=== PATIENT | female | born 1955 | race Caucasian/White ===

== ENCOUNTER 2017-07-08 06:41 | Observation (INO) | payer OTHER, SELFPAY ==
[2017-06-25 13:20] VITALS: BP 141/75; PULSE 86; RESP 16; TEMP 36.6; O2SAT 96; BMI 25.6
--- NOTE | 2017-06-25 13:25 | SDCEKG_ITS ---
Test Reason : Blood Pressure : / mmHG Vent. Rate : 080 BPM Atrial Rate : 080 BPM P-R Int : 136 ms QRS Dur : 084 ms QT Int : 372 ms P-R-T Axes : 046 027 040 degrees QTc Int : 429 ms Normal sinus rhythm Possible Left atrial enlargement Borderline ECG Confirmed by ANTONIO CAVAZOS, TREVER ([id number]), acquisition editor SHELBIE SAN ([id number]) on 06/28/2017 1:35:25 PM Referred By: Ton Bryant Confirmed By:TREVER ALVAREZ MD
[2017-06-25 13:55] LABS: Hematocrit 40.5 % (37-47); Hemoglobin 13.1 g/dl (12.0-15.0); Mean Corp Hgb Conc 32.3 g/gl (32-36); Mean Platelet Vol. 9.4 fl (6.2-12.0); Platelet Count 325 K/mm3 (150-450); RBC Distribution Width CV 12.7 % (11.6-14.6); RBC Distribution Width SD 44.6 fl (35.1-43.9); Red Blood Count 4.22 M/mm3 (4.2-5.4); Scan Indicated on CBC? Y/N NO; White Blood Count 9.7 K/mm3 (4.4-11.0)
[2017-06-25 14:08] LABS: Anion Gap 8 (5-15); BUN 13 mg/dL (7-18); BUN/Creat Ratio 19.5 RATIO (10-20); Calcium,Total 8.6 mg/dL (8.5-10.1); Chloride 104 mmol/L (98-107); Creatinine, Serum 0.67 mg/dL (0.55-1.02); EST Glomerular Filtration Rate 95 mL/min (>60); Est Glom Filt Rate - Afr Amer 115 mL/min (>60); Estimated Creatinine Clearance 82.49 ml/min; Glucose 100 mg/dL (74-106); Potassium 3.7 mmol/L (3.5-5.1); Sodium Level 141 mmol/L (136-145)
[2017-07-08] VITALS (13 sets, daily range): BP systolic 104–151; BP diastolic 56–84; PULSE 66–84; RESP 16–18; TEMP 36.1–36.7; O2SAT 94–100; BMI 25.6; BMI 24.3
[2017-07-08] MEDS: oxyCODONE HCl Cr 10 MG Tablet PO (07:14)
[2017-07-08] MEDS: Acetaminophen 500 MG Tablet 1000 MG PO ×2 (07:14→21:49)
[2017-07-08] MEDS: Celecoxib 200 MG Capsule 400 MG PO (07:14)
[2017-07-08] MEDS: Clindamycin 600 MG/50 ML BAG 100 MG IV ×3 (08:44→21:50)
--- NOTE | 2017-07-08 09:49 | RAD_ITS ---
STUDY: X-RAY - RIGHT KNEE REASON FOR EXAM: Female, 62 years old. Postop from replacement surgery TECHNIQUE: 2 view(s) of the knee. COMPARISON: None. FINDINGS: Patient is status post right knee placement surgery. Components demonstrate anatomic alignment. No plain film evidence of postoperative complication. Normal postoperative soft tissue swelling and subcutaneous emphysema. RAD/Knee 1 or 2 Views IMPRESSION: Replaced right knee joint demonstrates anatomic alignment. No plain film evidence of postoperative complication Electronically Signed: Leroy Vazquez MD at 10:54 EDT , Service support ,
--- NOTE | 2017-07-08 09:52 | PCM.OPRPT ---
Report of Operation Date of Procedure: 07/08/17 Pre-Operative Diagnosis: Severe end-stage osteoarthritis right knee with valgus alignment Post-Operative Diagnosis: Same Surgery/Procedure Performed:: Total knee arthroplasty right Description of Surgical Findings:: Eburnation of bone, periarticular osteophytes consistent with severe tricompartmental osteoarthritis vpk teacher: Santi Chacon Type of Anesthesia:: Spinal Anesthesiologist: Saul Juarez Special Medications: txa Specimen's removed: Bone and soft tissue Estimated Blood Loss (mL): 100 Fluids Replaced: See anesthesia report Description of Procedure: Implants: Man triathlon press-fit size 6 femur, 5 tibia, 32 mm patella with a size 9 CS articulating surface Indications: Patient has severe end-stage osteoarthritis diagnosed via x-rays in the knee. They have failed all forms of conservative measures including activity modification, injections, anti-inflammatories, use of assistive device. The patient has pain that affects on a daily basis and prevents him from doing things that they enjoyed. They have elected to undergo the above procedure. The risks of the procedure were discussed at length and their questions were answered. Procedure description: The patient was greeted in the preoperative area. The right knee was then marked with a surgical marker. Patient was then taken to or Suite 2. They were administered a dose of antibiotics as well as tranexamic acid. Once adequate anesthesia was obtained and airway was secured to placed in supine position on the operating room table. A well-padded tourniquet was placed on the affected extremity. Leg was then prepped and draped in the usual sterile fashion from the knee down. Ioban was used on the skin. Surgical timeout was then performed and confirmed with all present. Six-inch Esmarch was used to examine the limb and tourniquet was then inflated to 250 mmHg. A longitudinal incision was then planned and carried out in the anterior aspect of the knee. The dissection was then carried the length of the incision the extensor mechanism was identified. Standard medial parapatellar arthrotomy was then performed revealing severe eburnation of bone and periarticular osteophytes. There is complete loss of cartilage especially in the medial compartment with varus alignment. Anterior fat pad was removed for visualization purposes and the anterior medial aspect of the tibia was skeletonized for exposure to the knee. The knee was then flexed the patella was inverted. Opening reamer was then used in the femur approximately 1 cm anterior to the attachment of the PCL. The intramedullary valgus wand was then placed in the femur set at 5? of valgus. The distal femoral cutting jig was then applied to the femur with anticipated resection of approximately 8 mm. This was then made with a oscillating saw. The sizing guide was then placed referencing off the posterior condyles and also reference off the epicondylar axis. This was measured and the appropriate size 4-in-1 cutting jig was then applied to the distal femur. Anterior posterior cuts were made followed by the anterior and posterior chamfer cuts. These bony pieces and fragments were removed and placed on the back table. Posterior retractor was then utilized and the tibia was subluxed anteriorly. Extramedullary tibial alignment jig was then applied to the tibia referencing off the medial one third of the tibial tubercle the anterior tibial spine the middle aspect of the tibiotalar joint. Also reference off patient's [place] slope. The tibial cutting jig was then pinned with anticipated resection of 2 mm off of the deficient lateral tibial condyle. This cut was made with the oscillating saw. Once this was complete a laminar mental tester was utilized in both medial lateral meniscus were removed and a posterior capsular osteophytes were also removed. Posterior capsule release was performed in the posterior capsule as well as the geniculate arteries are treated with the aqua Yodit. The tibia was incised and the appropriate sized tibial tray was then pinned. The femoral trial was then placed and the knee was trialed. Full flexion-extension were easily achieved. The knee seemed to balance quite nicely. Any remaining osteophytes were removed at this time. Once this was complete the patella was everted and the Jorge L patella reaming device was then utilized the patella was then placed in the appropriate jig and reamer was then used to remove approximately 9 mm of the undersurface of the patella. A soft tissue remaining was in the way was removed and patella trial was then placed listed maintain excellent tracking using the no thumbs technique. The tibial tray at this point was punched to accommodate the fins of the final implant. The trial components were removed and the knee was copiously irrigated. Did use a cocktail of injection for postoperative pain control. The final components were then press-fit in the standard fashion and patellar clamp is placed in the patella. The tourniquet was deflated and hemostasis was perfect with Bovie cautery as well as the aqua Manus. The knee is once again trialed with different size polyethylenes to ensure the full range of motion was achieved as well as excellent balancing ligamentously was achieved. At this point the knee was copiously irrigated. Final implant was then inserted locking mechanism was engaged and confirmed to be locked. The arthrotomy was then closed with #1 Vicryl aggravate type fashion interrupted. Subcutaneous tissue was closed with 0 Vicryl and surgical becky were placed in the skin. A occlusive silver impregnated dressing was then applied followed by well-padded sterile dressing secured with an Hal wrap. The patient was taken to the PACU in stable condition. No complications known at this time. Postoperatively we will maintain standard total knee postoperative protocol. The use of the physician grooming assistant was integral during this procedure. They assisted with positioning placement of the tourniquet retracting closure and placement of the dressing. The procedure would have been much more difficult without their expertise and assistance - Complications none - Admit VTE Documentation VTE Present on Admission: Yes VTE Mechan Device Prophylaxis: SCD's, Thigh High MANUEL Hose VTE Pharm Prophylaxis ordered?: Yes
--- NOTE | 2017-07-08 09:56 | OP.PCM_ITS ---
Report of Operation Date of Procedure: 07/08/17 Pre-Operative Diagnosis: Severe end-stage osteoarthritis right knee with valgus alignment Post-Operative Diagnosis: Same Surgery/Procedure Performed:: Total knee arthroplasty right Description of Surgical Findings:: Eburnation of bone, periarticular osteophytes consistent with severe tricompartmental osteoarthritis vehicle maintenance supervisor: Santi Chacon Type of Anesthesia:: Spinal Anesthesiologist: Saul Juarez Special Medications: txa Specimen's removed: Bone and soft tissue Estimated Blood Loss (mL): 100 Fluids Replaced: See anesthesia report Description of Procedure: Implants: Man triathlon press-fit size 6 femur, 5 tibia, 32 mm patella with a size 9 CS articulating surface Indications: Patient has severe end-stage osteoarthritis diagnosed via x-rays in the knee. They have failed all forms of conservative measures including activity modification, injections, anti-inflammatories, use of assistive device. The patient has pain that affects on a daily basis and prevents him from doing things that they enjoyed. They have elected to undergo the above procedure. The risks of the procedure were discussed at length and their questions were answered. Procedure description: The patient was greeted in the preoperative area. The right knee was then marked with a surgical marker. Patient was then taken to or Suite 2. They were administered a dose of antibiotics as well as tranexamic acid. Once adequate anesthesia was obtained and airway was secured to placed in supine position on the operating room table. A well-padded tourniquet was placed on the affected extremity. Leg was then prepped and draped in the usual sterile fashion from the knee down. Ioban was used on the skin. Surgical timeout was then performed and confirmed with all present. Six-inch Esmarch was used to examine the limb and tourniquet was then inflated to 250 mmHg. A longitudinal incision was then planned and carried out in the anterior aspect of the knee. The dissection was then carried the length of the incision the extensor mechanism was identified. Standard medial parapatellar arthrotomy was then performed revealing severe eburnation of bone and periarticular osteophytes. There is complete loss of cartilage especially in the medial compartment with varus alignment. Anterior fat pad was removed for visualization purposes and the anterior medial aspect of the tibia was skeletonized for exposure to the knee. The knee was then flexed the patella was inverted. Opening reamer was then used in the femur approximately 1 cm anterior to the attachment of the PCL. The intramedullary valgus wand was then placed in the femur set at 5? of valgus. The distal femoral cutting jig was then applied to the femur with anticipated resection of approximately 8 mm. This was then made with a oscillating saw. The sizing guide was then placed referencing off the posterior condyles and also reference off the epicondylar axis. This was measured and the appropriate size 4-in-1 cutting jig was then applied to the distal femur. Anterior posterior cuts were made followed by the anterior and posterior chamfer cuts. These bony pieces and fragments were removed and placed on the back table. Posterior retractor was then utilized and the tibia was subluxed anteriorly. Extramedullary tibial alignment jig was then applied to the tibia referencing off the medial one third of the tibial tubercle the anterior tibial spine the middle aspect of the tibiotalar joint. Also reference off patient's [place] slope. The tibial cutting jig was then pinned with anticipated resection of 2 mm off of the deficient lateral tibial condyle. This cut was made with the oscillating saw. Once this was complete a laminar hand assembler for puller over was utilized in both medial lateral meniscus were removed and a posterior capsular osteophytes were also removed. Posterior capsule release was performed in the posterior capsule as well as the geniculate arteries are treated with the aqua Yodit. The tibia was incised and the appropriate sized tibial tray was then pinned. The femoral trial was then placed and the knee was trialed. Full flexion-extension were easily achieved. The knee seemed to balance quite nicely. Any remaining osteophytes were removed at this time. Once this was complete the patella was everted and the Jorge L patella reaming device was then utilized the patella was then placed in the appropriate jig and reamer was then used to remove approximately 9 mm of the undersurface of the patella. A soft tissue remaining was in the way was removed and patella trial was then placed listed maintain excellent tracking using the no thumbs technique. The tibial tray at this point was punched to accommodate the fins of the final implant. The trial components were removed and the knee was copiously irrigated. Did use a cocktail of injection for postoperative pain control. The final components were then press-fit in the standard fashion and patellar clamp is placed in the patella. The tourniquet was deflated and hemostasis was perfect with Bovie cautery as well as the aqua Manus. The knee is once again trialed with different size polyethylenes to ensure the full range of motion was achieved as well as excellent balancing ligamentously was achieved. At this point the knee was copiously irrigated. Final implant was then inserted locking mechanism was engaged and confirmed to be locked. The arthrotomy was then closed with #1 Vicryl aggravate type fashion interrupted. Subcutaneous tissue was closed with 0 Vicryl and surgical becky were placed in the skin. A occlusive silver impregnated dressing was then applied followed by well- padded sterile dressing secured with an Hal wrap. The patient was taken to the PACU in stable condition. No complications known at this time. Postoperatively we will maintain standard total knee postoperative protocol. The use of the physician assistant plant manager was integral during this procedure. They assisted with positioning placement of the tourniquet retracting closure and placement of the dressing. The procedure would have been much more difficult without their expertise and assistance - Complications none - Admit VTE Documentation VTE Present on Admission: Yes VTE Mechan Device Prophylaxis: SCD's, Thigh High MANUEL Hose VTE Pharm Prophylaxis ordered?: Yes
[2017-07-08] MEDS: Lactated Ringers 1,000 ML 125 ML IV ×2 (14:16→23:49)
[2017-07-08] MEDS: Ondansetron 4 MG/2 ML Vial IV ×2 (14:23→21:51)
--- NOTE | 2017-07-08 14:45 | CHAPLAIN ---
Type of Pastoral Visit _x__ Initial Visit ___ Follow-up Visit ___ On-call Visit ___ General Patient Visit ___ Spiritual Assessment ___ Family Conference ___ Bereavement ___ Rapid Response ___ Code Blue ___ Other (describe below) Pastoral Care Referral From ___ Patient _x__ Family ___ Nurse ___ Physician ___ Banking And Finance Instructor ___ Neurological Surgeon ___ Other (describe below) Sacrament/Intervention _x__ Active listening ___ Anointing ___ Scientologist ___ Bereavement ___ Communion ___ Sylvia exploration ___ ___ Life review ___ Prayer ___ Reconciliation ___ Sacrament of Sick _x__ Supportive presence ___ Wedding ___ Other (describe below) Pastoral Comments family member known to me; family member saw this critical care rn and asked for a visit; post surgery and pt is feeling a little unsettled in the stomach; other family members in room; offered support as desired
[2017-07-08] MEDS: Aspirin 325 MG Tablet PO (16:38)
[2017-07-08] MEDS: proMETHazine 25 MG/ML Syringe 12.5 MG IM (17:22)
[2017-07-08] MEDS: Ketorolac 15 MG/ML Vial IV (20:11)
[2017-07-08] MEDS: 0.9% NaCl Peripheral Flush Adult/Peds IV ×2 (20:11→21:49)
[2017-07-08] MEDS: Senna/Docusate Sodium 1 Tablet 2 TABLET PO (21:50)
[2017-07-08] MEDS: morphine SR 15 MG Tablet PO (21:50)
[2017-07-08] MEDS: Celecoxib 200 MG Capsule PO (21:50)
[2017-07-08] MEDS: Scopolamine 1mg/72hr Patch 1 PATCH TD (22:08)
[2017-07-09 02:15] VITALS: BP 136/77; PULSE 79; RESP 16; TEMP 37; O2SAT 97
[2017-07-09] MEDS: Clindamycin 600 MG/50 ML BAG 100 MG IV (02:27)
[2017-07-09] MEDS: 0.9% NaCl Peripheral Flush Adult/Peds IV ×3 (05:55→22:40)
[2017-07-09] MEDS: Acetaminophen 500 MG Tablet 1000 MG PO ×3 (05:55→22:06)
--- NOTE | 2017-07-09 07:41 | PCM.PN.ORT ---
Subjective: Shannan is doing quite well this morning. She has minimal discomfort and pain. She is sitting at bedside table. Her biggest issues with nausea and vomiting. She denies any chest pain or shortness of breath - Physical Exam Vital Signs Temp Pulse Resp BP Pulse Ox 98.6 F 79 16 136/77 H 97 07/09/17 02:15 07/09/17 02:15 07/09/17 02:15 07/09/17 02:15 07/09/17 02:15 Oxygen Delivery Method Room Air Weight: 155 lb Body Mass Index (BMI) 24.3 Intake and Output for Last 24 Hours 07/07/17 07/08/17 07/09/17 23:59 23:59 23:59 Intake Total 3593 / 3593 1056 / 1056 Output Total 1500 / 1500 500 / 500 Balance 2093 / 3 556 / 556 Medical Necessity - Tobacco Use Smoking Status: Never smoker Assessment/Plan Postop day 1 right total knee arthroplasty Postoperative nausea vomiting Shannan is doing quite well. I did place a scopolamine patch on her last night as well as increase the amount of Phenergan that she is receiving. This does seem to have helped. She has not had breakfast yet and will be curious as to if her nausea and vomiting has dissipated. Given the fact that she is having difficulty holding oral fluids I do feel that patient would benefit from staying another night and anticipate being discharged to home tomorrow
[2017-07-09] MEDS: Aspirin 325 MG Tablet PO ×2 (08:39→17:42)
[2017-07-09] MEDS: Calcium Carb/Vitamin D 1 TABLET Tablet PO (08:39)
[2017-07-09] MEDS: oxyCODONE 5 MG Tablet PO (08:39)
[2017-07-09 08:40] VITALS: BP 115/62; PULSE 70; RESP 16; TEMP 37.4; O2SAT 100
[2017-07-09 09:55] VITALS: PULSE 64
[2017-07-09] MEDS: morphine SR 15 MG Tablet PO ×2 (09:58→22:06)
[2017-07-09] MEDS: Senna/Docusate Sodium 1 Tablet 2 TABLET PO ×2 (09:58→22:07)
[2017-07-09] MEDS: Celecoxib 200 MG Capsule PO ×2 (09:59→22:07)
[2017-07-09] MEDS: Famotidine 20 MG Tablet PO (09:59)
--- NOTE | 2017-07-09 11:50 | CASEMGMT ---
PRUDENCIO GAONA Face to Face with patient for initial transition planning/care coordination assessment. RN JIMENEZ introduced self and role at [facility]. Patient lying in bed, alert and oriented, daughter at bedside. Patient willing to participate in assessment and is able to answer all questions appropriately. Care providers, pharmacy, and demographics verified. See link attached. Patient wishes to discharge home and is setup for outpatient therapy at [facility] with family providing transportation. Patient states she has no further needs or concerns at this time. CM to follow for discharge planning needs that may arise. Disposition Plan: Patient to discharge home with outpatient therapy, family support, and follow-plan in place.
[2017-07-09] MEDS: Ondansetron 4 MG/2 ML Vial IV (12:30)
[2017-07-09 14:39] VITALS: BP 118/63; PULSE 68; RESP 18; TEMP 37.3; O2SAT 96
--- NOTE | 2017-07-09 15:35 | CHAPLAIN ---
Type of Pastoral Visit ___ Initial Visit _x__ Follow-up Visit ___ On-call Visit ___ General Patient Visit ___ Spiritual Assessment ___ Family Conference ___ Bereavement ___ Rapid Response ___ Code Blue ___ Other (describe below) Pastoral Care Referral From _x__ Patient _x__ Family ___ Nurse ___ Physician ___ [employer] Mill Worker ___ Sales Property Manager ___ Other (describe below) Sacrament/Intervention _x__ Active listening ___ Anointing ___ Presybeterian ___ Bereavement ___ Communion ___ Sylvia exploration ___ ___ Life review ___ Prayer ___ Reconciliation ___ Sacrament of Sick ___ Supportive presence ___ Wedding ___ Other (describe below) Pastoral Comments
[2017-07-09 20:00] VITALS: BP 112/61; PULSE 76; RESP 16; TEMP 37.4; O2SAT 96
[2017-07-10 02:00] VITALS: BP 129/68; PULSE 83; RESP 16; TEMP 36.7; O2SAT 94
[2017-07-10] MEDS: oxyCODONE 5 MG Tablet PO ×3 (03:06→14:40)
[2017-07-10] MEDS: Acetaminophen 500 MG Tablet 1000 MG PO ×2 (06:08→14:38)
[2017-07-10] MEDS: 0.9% NaCl Peripheral Flush Adult/Peds IV (07:20)
[2017-07-10] MEDS: Ondansetron 4 MG/2 ML Vial IV (07:21)
[2017-07-10 07:37] VITALS: BP 113/63; PULSE 75; RESP 18; TEMP 36.9; O2SAT 94
[2017-07-10] MEDS: Aspirin 325 MG Tablet PO (07:39)
[2017-07-10] MEDS: Famotidine 20 MG Tablet PO (07:39)
[2017-07-10] MEDS: Celecoxib 200 MG Capsule PO (07:39)
[2017-07-10] MEDS: Calcium Carb/Vitamin D 1 TABLET Tablet PO (07:39)
[2017-07-10 08:30] VITALS: PULSE 74
[2017-07-10] MEDS: morphine SR 15 MG Tablet PO (10:05)
[2017-07-10] MEDS: Senna/Docusate Sodium 1 Tablet 2 TABLET PO (10:06)
--- NOTE | 2017-07-10 11:43 | PCM.DC.ORTHO ---
Discharge Diet: No Restrictions Discharge Activity: May Not Drive, May Shower - if dressing sealed Ice area for (Minutes): 20 Weight Bearing Status: Weight bearing as tolerated - with walker Keep extremity elevated above heart level: Right Leg Call your doctor if your incision/area has: Continuous Slow Oozing, Sudden Increased Bleeding, Increased Pain/ Swelling, Increased Redness, Foul Smelling Discharge Call your doctor if you observe: Fever of 101 or Higher, Coldness, Increased Pain, Numbness or Tingling, Change in Color Remove Dressing in (days):: 7 - open to air if no drainage Cleanse incision/area with: Soap & Water - after dressing removed if no drainage Allergies/Adverse Reactions: Allergies Penicillins Adverse Reaction (Verified 06/25/17 13:08) Nausea/Vom/Diarrhea Medications to take at Discharge Calcium Carbonate/Vitamin D3 [Calcium 500-Vit D3 200 Tablet] 1 each PO DAILY 06/25/17 Meloxicam [Mobic] 15 mg PO DAILY 06/25/17 Multivit with Calcium,Iron,Min [Multiple Vitamins For Women] 1 each PO DAILY 06/25/17 Acetaminophen [Tylenol] 1,000 mg PO Q8 tablet 07/10/17 Aspirin 325 mg PO BIDCM tablet 07/10/17 Ondansetron HCl [Zofran] 4 mg PO Q6H PRN PRN 5 Days #20 tab 07/10/17 Oxycodone [Oxyir] 5 - 10 mg PO Q4H PRN PRN 7 Days #56 tablet 07/10/17 morphine SR tablet [Ms Contin] 15 mg PO BID 7 Days #14 tablet 07/10/17 The following prescriptions were given: Oxycodone [Oxyir] 5 - 10 mg PO Q4H PRN PRN 7 Days #56 tablet PRN Reason: Mod-Severe Pain (4-10/10) Ondansetron HCl [Zofran] 4 mg PO Q6H PRN PRN 5 Days #20 tab PRN Reason: Nausea/Vomiting morphine SR tablet [Ms Contin] 15 mg PO BID 7 Days #14 tablet Please Follow Up With: Santi Chacon PA-C When: as scheduled
--- NOTE | 2017-07-10 11:53 | DCINST_ITS ---
Discharge Diet: No Restrictions Discharge Activity: May Not Drive, May Shower - if dressing sealed Ice area for (Minutes): 20 Weight Bearing Status: Weight bearing as tolerated - with walker Keep extremity elevated above heart level: Right Leg Call your doctor if your incision/area has: Continuous Slow Oozing, Sudden Increased Bleeding, Increased Pain/ Swelling, Increased Redness, Foul Smelling Discharge Call your doctor if you observe: Fever of 101 or Higher, Coldness, Increased Pain, Numbness or Tingling, Change in Color Remove Dressing in (days):: 7 - open to air if no drainage Cleanse incision/area with: Soap & Water - after dressing removed if no drainage Allergies/Adverse Reactions: Allergies Penicillins Adverse Reaction (Verified 06/25/17 13:08) Nausea/Vom/Diarrhea Medications to take at Discharge Calcium Carbonate/Vitamin D3 [Calcium 500-Vit D3 200 Tablet] 1 each PO DAILY Meloxicam [Mobic] 15 mg PO DAILY 06/25/17 Multivit with Calcium,Iron,Min [Multiple Vitamins For Women] 1 each PO DAILY Acetaminophen [Tylenol] 1,000 mg PO Q8 tablet 07/10/17 Aspirin 325 mg PO BIDCM tablet 07/10/17 Ondansetron HCl [Zofran] 4 mg PO Q6H PRN PRN 5 Days #20 tab 07/10/17 Oxycodone [Oxyir] 5 - 10 mg PO Q4H PRN PRN 7 Days #56 tablet 07/10/17 morphine SR tablet [Ms Contin] 15 mg PO BID 7 Days #14 tablet 07/10/17 The following prescriptions were given: Oxycodone [Oxyir] 5 - 10 mg PO Q4H PRN PRN 7 Days #56 tablet PRN Reason: Mod-Severe Pain (4-10/10) Ondansetron HCl [Zofran] 4 mg PO Q6H PRN PRN 5 Days #20 tab PRN Reason: Nausea/Vomiting morphine SR tablet [Ms Contin] 15 mg PO BID 7 Days #14 tablet Please Follow Up With: Santi Chacon PA-C When: as scheduled
--- NOTE | 2017-07-10 12:06 | DS.PCM_ITS ---
Discharge Summary Date of Admission: 07/08/17 Date of Discharge: 07/10/17 Summary: Shannan is a 62-year-old female who had a total knee arthroplasty on the right for severe end-stage osteoarthritis. Once she is stable in the PACU she was then taken to [facility] where she was monitored per protocol. She was placed on both mechanical and chemical DVT prophylaxis. She was also administered pain control oral as well as IV. She was evaluated by physical and Occupational Therapy in order to maximize functional independence. She did quite well and will be discharged to home July 02, 2017 please see discharge instructions.
[2017-07-10 14:35] VITALS: BP 123/65; PULSE 76; RESP 16; TEMP 36.8; O2SAT 95
== END 2017-07-10 14:56 | disposition home or self-care (01) ==
LOC: ACINP 15:59 → MS3 15:59
PROVIDERS: Admitting Provider Orthopaedic Surgery; Family Provider Internal Medicine; PCP Internal Medicine; Visit Provider Orthopaedic Surgery
PROC: (CPT 27447; principal; 2017-07-08 08:20)
DX: M17.11 Unilateral primary osteoarthritis, right knee (principal); K21.9 Gastro-esophageal reflux disease without esophagitis
CPT/HCPCS: 27447; 64447; 73560; 80048; 85027; 87081; 96361; 96365; 96366; 96372; 96375; 96376; 97110; 97116; 97161; 97165; 97530; 97535; 99218; J7120; A4216; G0378; G0379; J2405

== ENCOUNTER → 2017-08-13 10:17 | Outpatient (CLI) | payer OTHER, SELFPAY ==
--- NOTE | 2017-08-13 10:28 | RAD_ITS ---
STUDY: X-RAY - PELVIS REASON FOR EXAM: Female, 62 years old. Arthritis TECHNIQUE: One view of the pelvis was obtained. COMPARISON: 06/21/2013 FINDINGS: There is no evidence of fracture or dislocation. There are stable mild degenerative changes in the lower spine and in the hips. There are no radiodense foreign bodies. RAD/Pelvis 1 or 2 Views IMPRESSION: No fracture or dislocation. Stable mild degenerative changes in the lower spine and hips. Electronically Signed: Ted Hood, at 17:12 EDT Tel , Service support ,
[2017-08-13 12:12] LABS: Erythrocyte Sedimentation Rate 9 mm/hr (0-30)
[2017-08-13 12:13] LABS: Absolute Lymphocyte Count 2.01 X10^3/ul (0.83-4.51); Absolute Neutrophil Count 5.2 X10^3/uL (2.0-7.7); Basophil# 0.01 X10^3/uL; Basophil% 0.1 % (0-1); Eosinophil# 0.11 X10^3/uL; Eosinophils% 1.4 % (0-5); Hematocrit 37.1 % (37-47); Hemoglobin 11.6 g/dl (12.0-15.0); Lymphocyte # 2.01 X10^3/ul (4.0); Lymphocyte % 25.4 % (19-41); Mean Corp Hgb Conc 31.3 g/gl (32-36); Mean Corpuscular Hgb 30.6 pg (27.0-32.0); Mean Corpuscular Volume 97.9 fL (81-99); Mean Platelet Vol. 8.9 fl (6.2-12.0); Monocyte# 0.52 X10^3/uL; Monocyte% 6.6 % (0-10); Neutrophil # 5.24 X10^3/uL (2.7-7.7); Neutrophil % 66.4 % (47-70); Platelet Count 348 K/mm3 (150-450); RBC Distribution Width CV 13.6 % (11.6-14.6); RBC Distribution Width SD 48.6 fl (35.1-43.9); Red Blood Count 3.79 M/mm3 (4.2-5.4); White Blood Count 7.9 K/mm3 (4.4-11.0)
[2017-08-13 12:25] LABS: ALB/GLOB Ratio 1.1 RATIO (0.9-2.4); AST(SGOT) 19 U/L (15-37); Alanine Aminotransfer ALT/SGPT 19 U/L (13-56); Albumin, Serum 4.1 g/dL (3.2-5.0); Alkaline Phosphatase 84 U/L (45-117); Anion Gap 5 (5-15); BUN 16 mg/dL (7-18); BUN/Creat Ratio 25.5 RATIO (10-20); CRP < 2.90 mg/L (0.0-3.0); Calcium,Total 9.2 mg/dL (8.5-10.1); Chloride 106 mmol/L (98-107); Creatinine, Serum 0.63 mg/dL (0.55-1.02); EST Glomerular Filtration Rate 102 mL/min (>60); Est Glom Filt Rate - Afr Amer 123 mL/min (>60); Globulin 3.6 g/dL (2.2-4.2); Glucose 87 mg/dL (74-106); Potassium 3.7 mmol/L (3.5-5.1); Protein, Total 7.7 g/dL (6.4-8.2); Rheumatoid Factor < 10.0 IU/mL (<15); Sodium Level 141 mmol/L (136-145)
[2017-08-13 12:26] LABS: POSITIVE COUNT NO; POSITIVE DIFFERENTIAL NO; POSITIVE MORPHOLOGY NO
[2017-08-20 11:13] LABS: CCP IgG Antibodies 2 units (0-19); HLA B27 Negative (.)
== END ==
PROVIDERS: Family Provider Internal Medicine; PCP Internal Medicine; Visit Provider Internal Medicine Rheumatology
DX: M18.11 Unilateral primary osteoarthritis of first carpometacarpal joint, right hand (principal); M47.897 Other spondylosis, lumbosacral region
CPT/HCPCS: 36415; 72170; 80053; 81374; 85025; 85652; 86140; 86200; 86431

== ENCOUNTER → 2018-03-18 10:19 | Outpatient (CLI) | payer MEDICARE, SELFPAY ==
[2017-07-08 12:01] VITALS: BMI 24.3
[2018-03-18 12:17] LABS: Absolute Neutrophil Count 4.5 X10^3/uL (2.0-7.7); Basophil# 0.01 X10^3/uL; Basophil% 0.1 % (0-1); Eosinophil# 0.07 X10^3/uL; Eosinophils% 0.9 % (0-5); Hematocrit 41.4 % (37-47); Hemoglobin 13.5 g/dl (12.0-15.0); Mean Corp Hgb Conc 32.6 g/gl (32-36); Mean Corpuscular Hgb 31.6 pg (27.0-32.0); Mean Platelet Vol. 9.8 fl (6.2-12.0); Monocyte% 6.7 % (0-10); Neutrophil # 4.52 X10^3/uL (2.7-7.7); Neutrophil % 61.2 % (47-70); Platelet Count 350 K/mm3 (150-450); RBC Distribution Width CV 12.9 % (11.6-14.6); RBC Distribution Width SD 44.8 fl (35.1-43.9); Red Blood Count 4.27 M/mm3 (4.2-5.4); White Blood Count 7.4 K/mm3 (4.4-11.0)
[2018-03-18 12:23] LABS: POSITIVE COUNT NO; POSITIVE DIFFERENTIAL NO; POSITIVE MORPHOLOGY NO
[2018-03-18 12:56] LABS: ALB/GLOB Ratio 1.2 RATIO (0.9-2.4); AST(SGOT) 25 U/L (15-37); Alanine Aminotransfer ALT/SGPT 34 U/L (13-56); Albumin, Serum 4.4 g/dL (3.2-5.0); Alkaline Phosphatase 85 U/L (45-117); Anion Gap 12 (5-15); BUN 20 mg/dL (7-18); BUN/Creat Ratio 28.3 RATIO (10-20); Calcium,Total 9.3 mg/dL (8.5-10.1); Chloride 100 mmol/L (98-107); Creatinine, Serum 0.71 mg/dL (0.55-1.02); EST Glomerular Filtration Rate 88 mL/min (>60); Est Glom Filt Rate - Afr Amer 107 mL/min (>60); Globulin 3.8 g/dL (2.2-4.2); Glucose 87 mg/dL (74-106); Potassium 4.2 mmol/L (3.5-5.1); Protein, Total 8.2 g/dL (6.4-8.2); Sodium Level 140 mmol/L (136-145)
== END ==
PROVIDERS: Family Provider Internal Medicine; PCP Internal Medicine; Referring Provider Internal Medicine Rheumatology; Visit Provider Internal Medicine Rheumatology
DX: M47.897 Other spondylosis, lumbosacral region (principal)
CPT/HCPCS: 36415; 80053; 85025

== ENCOUNTER → 2018-11-03 11:37 | Outpatient (CLI) | payer MEDICARE, SELFPAY ==
[2017-07-08 12:01] VITALS: BMI 24.3
[2018-11-03 13:50] LABS: Absolute Lymphocyte Count 2.05 X10^3/uL (0.83-4.51); Absolute Neutrophil Count 5.5 X10^3/uL (2.0-7.7); Basophil# 0.02 X10^3/uL; Basophil% 0.2 % (0-1); Eosinophil# 0.07 X10^3/uL; Eosinophils% 0.9 % (0-5); Hematocrit 40.7 % (37-47); Hemoglobin 13.4 g/dL (12.0-15.0); Lymphocyte # 2.05 X10^3/ul (4.0); Lymphocyte % 25.3 % (19-41); Mean Corp Hgb Conc 32.9 g/dL (32-36); Mean Corpuscular Hgb 31.5 pg (27.0-32.0); Mean Corpuscular Volume 95.8 fL (81-99); Mean Platelet Vol. 9.8 fl (6.2-12.0); Monocyte# 0.48 X10^3/uL; Monocyte% 5.9 % (0-10); NRBC Flagged by Analyzer 0 % (0-5); Neutrophil # 5.48 X10^3/uL (2.7-7.7); Neutrophil % 67.6 % (47-70); Platelet Count 330 K/mm3 (150-450); RBC Distribution Width CV 12.2 % (11.6-14.6); RBC Distribution Width SD 42.5 fl (35.1-43.9); Red Blood Count 4.25 M/mm3 (4.2-5.4); White Blood Count 8.1 K/mm3 (4.4-11.0)
[2018-11-03 14:04] LABS: ALB/GLOB Ratio 1.2 RATIO (0.9-2.4); AST(SGOT) 26 U/L (15-37); Alanine Aminotransfer ALT/SGPT 31 U/L (13-56); Albumin, Serum 4.4 g/dL (3.2-5.0); Alkaline Phosphatase 84 U/L (45-117); Anion Gap 10 (5-15); BUN 13 mg/dL (7-18); BUN/Creat Ratio 17.4 RATIO (10-20); Chloride 104 mmol/L (98-107); Creatinine, Serum 0.75 mg/dL (0.55-1.02); EST Glomerular Filtration Rate 83 mL/min (>60); Est Glom Filt Rate - Afr Amer 100 mL/min (>60); Globulin 3.6 g/dL (2.2-4.2); Glucose 92 mg/dL (74-106); Potassium 4.1 mmol/L (3.5-5.1); Sodium Level 140 mmol/L (136-145)
== END ==
PROVIDERS: Family Provider Internal Medicine; PCP Internal Medicine; Referring Provider Internal Medicine Rheumatology; Visit Provider Internal Medicine Rheumatology
DX: M18.11 Unilateral primary osteoarthritis of first carpometacarpal joint, right hand (principal); Q66.7 Congenital pes cavus; M47.897 Other spondylosis, lumbosacral region
CPT/HCPCS: 36415; 80053; 85025

== ENCOUNTER → 2019-04-30 12:23 | Outpatient (CLI) | payer MEDICARE, SELFPAY ==
[2017-07-08 12:01] VITALS: BMI 24.3
[2019-04-30 14:02] LABS: Hemoglobin 13.4 g/dL (12.0-15.0); White Blood Count 8.2 K/mm3 (4.4-11.0)
[2019-04-30 14:03] LABS: Absolute Neutrophil Count 5.3 X10^3/uL (2.0-7.7); Basophil# 0.02 X10^3/uL; Basophil% 0.2 % (0-1); Eosinophils% 1.2 % (0-5); Hematocrit 41.4 % (37-47); Mean Corp Hgb Conc 32.4 g/dL (32-36); Mean Corpuscular Hgb 31.2 pg (27.0-32.0); Mean Corpuscular Volume 96.3 fL (81-99); Mean Platelet Vol. 9.3 fl (6.2-12.0); Monocyte# 0.51 X10^3/uL; Monocyte% 6.2 % (0-10); NRBC Flagged by Analyzer 0 % (0-5); Neutrophil # 5.27 X10^3/uL (2.7-7.7); Neutrophil % 64.2 % (47-70); Platelet Count 326 K/mm3 (150-450); RBC Distribution Width CV 12.2 % (11.6-14.6); RBC Distribution Width SD 42.8 fl (35.1-43.9)
[2019-04-30 14:18] LABS: ALB/GLOB Ratio 1.1 RATIO (0.9-2.4); AST(SGOT) 18 U/L (15-37); Alanine Aminotransfer ALT/SGPT 29 U/L (13-56); Albumin, Serum 4.2 g/dL (3.2-5.0); Alkaline Phosphatase 80 U/L (45-117); Anion Gap 4 (5-15); BUN 15 mg/dL (7-18); BUN/Creat Ratio 20.8 RATIO (10-20); Calcium,Total 9.5 mg/dL (8.5-10.1); Chloride 105 mmol/L (98-107); Creatinine, Serum 0.72 mg/dL (0.55-1.02); EST Glomerular Filtration Rate 86 mL/min (>60); Est Glom Filt Rate - Afr Amer 104 mL/min (>60); Globulin 3.7 g/dL (2.2-4.2); Glucose 95 mg/dL (74-106); Potassium 4.4 mmol/L (3.5-5.1); Protein, Total 7.9 g/dL (6.4-8.2); Sodium Level 139 mmol/L (136-145)
== END ==
PROVIDERS: PCP Internal Medicine; Referring Provider Internal Medicine Rheumatology; Visit Provider Internal Medicine Rheumatology
DX: M18.11 Unilateral primary osteoarthritis of first carpometacarpal joint, right hand (principal); M17.0 Bilateral primary osteoarthritis of knee; M47.897 Other spondylosis, lumbosacral region
CPT/HCPCS: 36415; 80053; 85025

== ENCOUNTER 2019-05-22 08:26 | Day surgery (SDC) | payer MEDICARE, SELFPAY ==
[2019-05-22] VITALS (8 sets, daily range): BP systolic 113–154; BP diastolic 70–86; PULSE 71–88; RESP 16–22; TEMP 36.1–36.6; O2SAT 98–100; BMI 24.5
[2019-05-22] MEDS: Lactated Ringers 1,000 ML 100 ML IV (08:57)
--- NOTE | 2019-05-22 09:10 | H&P.OPEN ---
History of Present Illness Date of Admission: 05/22/19 The patient is a 64 year old F here for screening colonoscopy. The patient has colonoscopies every 5 years due to a brother with rectal cancer before age 60. Patient had her last colonoscopy 5 years ago and some polyps were found. Patient notes no abdominal pain or blood in her stool. Past Medical/Surgical History - Planned Operation Planned Operative Procedure/s: COLONOSCOPY Date of Operative Procedure: 05/22/19 Permit Signed: Yes S.O.S: No Is This Patient Having a Total Joint: No - Previous Hospitalizations/Surgeries HX Hospitalizations: No HX of Surgeries: APPENDECTOMY. RIGHT KNEE SCOPE. COLONOSCOPY. R TKR 07/08/2017 Any Problems With Anesthesia: Yes - N& V W/ TKR You/Your Family Experience Fever (Hyperthermia) With Anes: No Cholinesterase deficiency: No - Cardiovascular Hx Chest Pain within Last 2 months: No Hx of Irregular Heartbeat and/or Afib: No Hx Heart Attack: No Hx Congestive Heart Failure: No Hx Rheumatic Fever: No Hx Hypertension: No Hx Internal Defibrillator: No Hx Pacemaker: No Hx Cardiac Catheterization: No Hx Cardiac Surgery/Stents/Etc.: No Hx Stress Test: No HX Edema: No Hx Pain in Legs when Walking/Leg Cramps: No - Respiratory Chronic Cough: No HX of Shortness of Breath: No Hoarseness: No Hx Chronic Obstructive Pulmonary Disease (COPD): No Hx Asthma: No Hx Emphysema: No Hx Sleep Apnea: No Hx Oxygen Use at Home: No Hx Respiratory Tract Infection/Cold (presently): No Do You Snore Loudly (louder than talking or can be heard): No Do You Often Feel Tired/ Fatigued/ Sleepy Dring Daytime?: No Has Anyone Observed You Stop Breathing During Sleep?: No Result (for STOP score): Negative Hx Smoking: No Smoking Status: Never smoker - Gastrointestinal Hx Gastroesophageal Reflux: Yes - OCC HEARTBURN/USES OTC 2-3XPER WEEK Controlled With Meds: Yes - PEPCID Hx Gastrointestinal Disorders: No Hx Gastrointestinal Bleed: No Hx Ulcer: No Hx Hiatal Hernia: No Difficulty Chewing/Swallowing: No Recent Onset of Swallowing Problems: No Special diet followed at home: No Hx Unplanned Weight Loss of 20#: No HX Unplanned Weight Gain of 20#: No - Neurological Hx Seizures: No HX Syncope/Blackout Spells/Unconsciousness: No Hx CVA/Stroke: No Hx Transient Ischemic Attacks (TIA): No Hx Multiple Sclerosis: No Hx Parkinson's Disease: No Hx Head/Neck Injury: No Hx Headaches: No Hx Back Injury/Pain: Yes - OCC LOW BACK PAIN Recent Onset of Speech Difficulty: No Restless Legs: No Does patient have nerve stimulator: No - Blood Disorder Hx Leukemia: No Bleeding Tendencies: No Hx Deep Vein Thrombosis: No Hx High Cholesterol: No Blood Transmitted Disease: No Hx Hepatitis: No Hx Cirrhosis: No Hx Anemia: No Hx Blood Disorders: No - Reproduction : No Is Patient Lactating: No Hx Hysterectomy: No Hx Tubal Ligation: No Are You Post Menopause: Yes - Genitourinary Hx Renal Disease: No - Musculoskeletal Hx Arthritis: Yes Hx Rheumatoid Arthritis: No Hx Gout: No Recent Onset of an Orthopedic Problem: No - Endocrine Hx Diabetes: No Thyroid Disease: No Hx Steroid Therapy: No - Psycho/Social Hx Substance Use: No Hx Alcohol Use: Yes - SOCIAL Hx Anxiety: No Hx Depression: No Mental Illness: No Hx Dementia: No - Miscellaneous Hx Cancer: No Recent Exposure to Contagious Disease: No Active MRSA: No Hx of C-Diff: No Any Loose Teeth: No Allergies Penicillins Adverse Reaction (Verified 05/22/19 08:49) Nausea/Vom/Diarrhea - Discharge Is Pt Admitted From a Skilled Nursing, or a Care Home: No Who Could Help: SISTERLCAIR After D/C, Where Do you Plan to Go: Return Home - From the PAT History Number of Risk Factors: 2 - Physical Exam Vitals/I&O's: Vital Signs Temp Pulse Resp BP Pulse Ox 96.9 F L 88 16 131/72 H 98 05/22/19 08:50 05/22/19 08:50 05/22/19 08:50 05/22/19 08:50 05/22/19 08:50 Oxygen Delivery Method Room Air Weight: 156 lb 11.979 oz Body Mass Index (BMI) 24.5 General: Alert, Oriented x3 Neck: No JVD Lungs: Normal air movement Cardiovascular: Regular rate, Regular Rhythm Abdomen: Soft, Non Tender, Non-Distended Current Medications Lactated Ringer's () 1,000 mls @ 100 mls/hr IV .Q10H MARY Last Admin: 05/22/19 08:57 Dose: 100 mls/hr Documented by: Assessment/Plan 64-year-old female for surveillance colonoscopy I explained endoscopy in detail to the patient. I explained the risks including but not limited to stroke or heart attack with anesthesia, perforation of the GI tract, bleeding, infection. I explained that any of these could necessitate further emergency surgery. The patient understands and all questions were answered sufficiently. The patient wishes to proceed with procedure. Melquiades Thomas MD Pager: [facility] [address] [place] [address] [address] [place] [address] Office: Surgery Risks - Colonoscopy Risks Include but are not Limited To: Risks include but are not limited to: Bleeding, perforation requiring further surgery, inability to complete colonoscopy requiring barium enema.
--- NOTE | 2019-05-22 09:53 | OP.COLON_ITS ---
Patient Name: Shannan Thomas Procedure Date: 05/22/2019 9:13 AM Date of : 1955 Age: 64 Procedure: Colonoscopy Indications: High risk colon cancer surveillance: Personal history of non-advanced adenoma, Family history of rectal cancer in a first-degree relative Providers: Melquiades Thomas MD Referring MD: Melquiades Thomas MD Medicines: Monitored Anesthesia Care Patient Profile: This is a 64 year old female. Refer to note in patient chart for documentation of history and physical. Last Colonoscopy: 5 years ago. Complications: No immediate complications. Estimated blood loss: Minimal. Procedure: Pre-Anesthesia Assessment: - Prior to the procedure, a History and Physical was performed, and patient medications and allergies were reviewed. The patient's tolerance of previous anesthesia was also reviewed. The risks and benefits of the procedure and the sedation options and risks were discussed with the patient. All questions were answered, and informed consent was obtained. Prior Anticoagulants: The patient has taken no previous anticoagulant or antiplatelet agents. After reviewing the risks and benefits, the patient was deemed in satisfactory condition to undergo the procedure. After I obtained informed consent, the scope was passed under direct vision. Throughout the procedure, the patient's blood pressure, pulse, and oxygen saturations were monitored continuously. The pediatric colonoscope was introduced through the anus and advanced to the cecum, identified by appendiceal orifice and ileocecal valve. The colonoscopy was performed with moderate difficulty due to a tortuous colon. The patient tolerated the procedure well. The quality of the bowel preparation was good. Scope In: 9:22:16 AM Scope Withdrawal Time 0 hours 6 minutes 12 seconds Scope Out: 9:47:37 AM Total Procedure Duration Time 0 hours 25 minutes 21 seconds Findings: The entire examined colon appeared normal on direct and retroflexion views. Impression: - The entire examined colon is normal on direct and retroflexion views. - No specimens collected. Recommendation: - Discharge patient to home. - Resume previous diet. - Continue present medications. - Repeat colonoscopy in 5 years for surveillance. Procedure Code(s): --- Professional --- 81636, Colonoscopy, flexible; diagnostic, including collection of specimen(s) by brushing or washing, when performed (separate procedure) Diagnosis Code(s): --- Professional --- Z86.010, Personal history of colonic polyps Z80.0, Family history of malignant neoplasm of digestive organs CPT copyright 2017 [employer]. All rights reserved. The codes documented in this report are preliminary and upon plaster molder review may be revised to meet current compliance requirements. Melquiades Thomas MD 05/22/2019 9:53:25 AM This report has been signed electronically. Number of Addenda: 0 Note Initiated On: 05/22/2019 9:13 AM
--- NOTE | 2019-05-22 09:54 | OP.CCLET_ITS ---
05/22/2019 Jamie Franks [address] [place] [address] Re : Colonoscopy procedure for Shannan Thomas Dear Dr. Franks This procedure was performed on Wednesday, May 22, 2019. My impressions and recommendations are as follows: Impressions : - The entire examined colon is normal on direct and retroflexion views. - No specimens collected. Recommendations : - Discharge patient to home. - Resume previous diet. - Continue present medications. - Repeat colonoscopy in 5 years for surveillance. My findings are described in the full procedure note, which is enclosed. If I can be of further assistance, please feel free to contact me at Doctor phone number(s): , Work: . Sincerely, Melquiades Thomas MD 05/22/2019 9:53:25 AM This report has been signed electronically.
== END 2019-05-22 10:48 | disposition home or self-care (01) ==
LOC: EN 08:27 → AC 08:28
PROVIDERS: PCP Internal Medicine; Referring Provider Surgery; Visit Provider Surgery
PROC: 0DJD8ZZ Inspection of Lower Intestinal Tract, Via Natural or Artificial Opening Endoscopic (ICD-10-PCS; CPT 45378; principal; 2019-05-22 09:25)
DX: Z12.11 Encounter for screening for malignant neoplasm of colon (principal); Z80.0 Family history of malignant neoplasm of digestive organs; K21.9 Gastro-esophageal reflux disease without esophagitis; Z86.010 Personal history of colon polyps; Z88.0 Allergy status to penicillin
CPT/HCPCS: G0105; J7120; J2405

== ENCOUNTER → 2019-10-26 10:02 | Outpatient (CLI) | payer MEDICARE, SELFPAY ==
[2019-05-22 08:50] VITALS: BMI 24.5
[2019-10-26 12:42] LABS: Absolute Lymphocyte Count 2.31 X10^3/uL (0.83-4.51); Absolute Neutrophil Count 4.1 X10^3/uL (2.0-7.7); Basophil# 0.02 X10^3/uL; Basophil% 0.3 % (0-1); Eosinophil# 0.12 X10^3/uL; Eosinophils% 1.7 % (0-5); Hematocrit 40.9 % (37-47); Lymphocyte # 2.31 X10^3/ul (4.0); Lymphocyte % 32.5 % (19-41); Mean Corp Hgb Conc 31.8 g/dL (32-36); Mean Corpuscular Volume 97.6 fL (81-99); Mean Platelet Vol. 9.9 fl (6.2-12.0); Monocyte# 0.56 X10^3/uL; Monocyte% 7.9 % (0-10); NRBC Flagged by Analyzer 0 % (0-5); Neutrophil # 4.09 X10^3/uL (2.7-7.7); Neutrophil % 57.5 % (47-70); Platelet Count 330 K/mm3 (150-450); RBC Distribution Width CV 12.3 % (11.6-14.6); RBC Distribution Width SD 43.9 fl (35.1-43.9); Red Blood Count 4.19 M/mm3 (4.2-5.4); White Blood Count 7.1 K/mm3 (4.4-11.0)
[2019-10-26 12:58] LABS: ALB/GLOB Ratio 1.1 RATIO (0.9-2.4); AST(SGOT) 18 U/L (15-37); Alanine Aminotransfer ALT/SGPT 23 U/L (13-56); Albumin, Serum 4.1 g/dL (3.2-5.0); Alkaline Phosphatase 80 U/L (45-117); Anion Gap 5 (5-15); BUN 13 mg/dL (7-18); BUN/Creat Ratio 19.1 RATIO (10-20); Chloride 106 mmol/L (98-107); Creatinine, Serum 0.68 mg/dL (0.55-1.02); EST Glomerular Filtration Rate 92 mL/min (>60); Est Glom Filt Rate - Afr Amer 111 mL/min (>60); Globulin 3.9 g/dL (2.2-4.2); Glucose 100 mg/dL (74-106); Potassium 3.7 mmol/L (3.5-5.1); Sodium Level 138 mmol/L (136-145)
== END ==
PROVIDERS: PCP Internal Medicine; Referring Provider Internal Medicine Rheumatology; Visit Provider Internal Medicine Rheumatology
DX: M18.11 Unilateral primary osteoarthritis of first carpometacarpal joint, right hand (principal); M17.0 Bilateral primary osteoarthritis of knee; M47.897 Other spondylosis, lumbosacral region; Q66.70 Congenital pes cavus, unspecified foot
CPT/HCPCS: 36415; 80053; 85025

== ENCOUNTER → 2020-04-22 10:14 | Outpatient (CLI) | payer MEDICARE, SELFPAY ==
[2019-05-22 08:50] VITALS: BMI 24.5
[2020-04-22 12:31] LABS: Absolute Lymphocyte Count 2.07 X10^3/uL (0.83-4.51); Absolute Neutrophil Count 5.1 X10^3/uL (2.0-7.7); Basophil# 0.02 X10^3/uL; Basophil% 0.3 % (0-1); Eosinophil# 0.12 X10^3/uL; Eosinophils% 1.5 % (0-5); Hematocrit 40.4 % (37-47); Lymphocyte # 2.07 X10^3/ul (4.0); Lymphocyte % 26.3 % (19-41); Mean Corp Hgb Conc 32.2 g/dL (32-36); Mean Corpuscular Hgb 30.7 pg (27.0-32.0); Mean Corpuscular Volume 95.5 fL (81-99); Mean Platelet Vol. 9.6 fl (6.2-12.0); Monocyte# 0.51 X10^3/uL; Monocyte% 6.5 % (0-10); NRBC Flagged by Analyzer 0 % (0-5); Neutrophil # 5.14 X10^3/uL (2.7-7.7); Neutrophil % 65.1 % (47-70); Platelet Count 350 K/mm3 (150-450); RBC Distribution Width CV 12.5 % (11.6-14.6); Red Blood Count 4.23 M/mm3 (4.2-5.4); White Blood Count 7.9 K/mm3 (4.4-11.0)
[2020-04-22 12:53] LABS: ALB/GLOB Ratio 1.1 RATIO (0.9-2.4); AST(SGOT) 22 U/L (15-37); Alanine Aminotransfer ALT/SGPT 29 U/L (13-56); Albumin, Serum 4.1 g/dL (3.2-5.0); Alkaline Phosphatase 77 U/L (45-117); Anion Gap 5 (5-15); BUN 14 mg/dL (7-18); BUN/Creat Ratio 19.9 RATIO (10-20); Calcium,Total 8.9 mg/dL (8.5-10.1); Chloride 101 mmol/L (98-107); EST Glomerular Filtration Rate 88 mL/min (>60); Est Glom Filt Rate - Afr Amer 107 mL/min (>60); Globulin 3.6 g/dL (2.2-4.2); Glucose 93 mg/dL (74-106); Potassium 3.5 mmol/L (3.5-5.1); Protein, Total 7.7 g/dL (6.4-8.2); Sodium Level 137 mmol/L (136-145)
== END ==
PROVIDERS: PCP Internal Medicine; Referring Provider Internal Medicine Rheumatology; Visit Provider Internal Medicine Rheumatology
DX: M18.11 Unilateral primary osteoarthritis of first carpometacarpal joint, right hand (principal); M17.0 Bilateral primary osteoarthritis of knee; M47.897 Other spondylosis, lumbosacral region
CPT/HCPCS: 36415; 80053; 85025

== ENCOUNTER → 2020-10-04 09:41 | Outpatient (CLI) | payer MEDICARE, SELFPAY ==
[2019-05-22 08:50] VITALS: BMI 24.5
[2020-10-04 12:38] LABS: Absolute Lymphocyte Count 1.85 X10^3/uL (0.83-4.51); Basophil# 0.03 X10^3/uL; Basophil% 0.5 % (0-1); Eosinophils% 1.5 % (0-5); Hematocrit 38.1 % (37-47); Hemoglobin 12.4 g/dL (12.0-15.0); Lymphocyte # 1.85 X10^3/ul (0.83-4.51); Lymphocyte % 28.5 % (19-41); Mean Corp Hgb Conc 32.5 g/dL (32-36); Mean Corpuscular Hgb 31.6 pg (27.0-32.0); Mean Corpuscular Volume 96.9 fL (81-99); Mean Platelet Vol. 9.5 fl (6.2-12.0); Monocyte# 0.49 X10^3/uL; Monocyte% 7.6 % (0-10); NRBC Flagged by Analyzer 0 % (0-5); Neutrophil # 3.98 X10^3/uL (2.7-7.7); Neutrophil % 61.4 % (47-70); Platelet Count 352 K/mm3 (150-450); RBC Distribution Width CV 12.5 % (11.6-14.6); RBC Distribution Width SD 44.9 fl (35.1-43.9); Red Blood Count 3.93 M/mm3 (4.2-5.4); White Blood Count 6.5 K/mm3 (4.4-11.0)
[2020-10-04 13:07] LABS: ALB/GLOB Ratio 1.1 RATIO (0.9-2.4); AST(SGOT) 18 U/L (15-37); Alanine Aminotransfer ALT/SGPT 21 U/L (13-56); Albumin, Serum 3.9 g/dL (3.2-5.0); Alkaline Phosphatase 75 U/L (45-117); Anion Gap 8 (5-15); BUN 14 mg/dL (7-18); BUN/Creat Ratio 17.9 RATIO (10-20); Chloride 106 mmol/L (98-107); Creatinine, Serum 0.78 mg/dL (0.55-1.02); EST Glomerular Filtration Rate 78 mL/min (>60); Est Glom Filt Rate - Afr Amer 94 mL/min (>60); Globulin 3.5 g/dL (2.2-4.2); Glucose 77 mg/dL (74-106); Potassium 3.8 mmol/L (3.5-5.1); Protein, Total 7.4 g/dL (6.4-8.2); Sodium Level 140 mmol/L (136-145)
== END ==
PROVIDERS: PCP Internal Medicine; Referring Provider Internal Medicine Rheumatology; Visit Provider Internal Medicine Rheumatology
DX: M18.11 Unilateral primary osteoarthritis of first carpometacarpal joint, right hand (principal); M17.0 Bilateral primary osteoarthritis of knee; M47.897 Other spondylosis, lumbosacral region
CPT/HCPCS: 36415; 80053; 85025

== ENCOUNTER → 2021-04-03 10:08 | Outpatient (CLI) | payer MEDICARE, SELFPAY ==
[2021-04-03 12:21] LABS: Absolute Lymphocyte Count 1.89 X10^3/uL (0.83-4.51); Absolute Neutrophil Count 4.6 X10^3/uL (2.0-7.7); Basophil# 0.02 X10^3/uL; Basophil% 0.3 % (0-1); Eosinophil# 0.16 X10^3/uL; Eosinophils% 2.3 % (0-5); Hematocrit 39.1 % (37-47); Hemoglobin 12.6 g/dL (12.0-15.0); Lymphocyte # 1.89 X10^3/ul (0.83-4.51); Lymphocyte % 26.8 % (19-41); Mean Corp Hgb Conc 32.2 g/dL (32-36); Mean Corpuscular Hgb 30.9 pg (27.0-32.0); Mean Corpuscular Volume 95.8 fL (81-99); Mean Platelet Vol. 9.4 fl (6.2-12.0); Monocyte# 0.36 X10^3/uL; Monocyte% 5.1 % (0-10); NRBC Flagged by Analyzer 0 % (0-5); Neutrophil # 4.59 X10^3/uL (2.7-7.7); Neutrophil % 65.2 % (47-70); Platelet Count 333 K/mm3 (150-450); RBC Distribution Width CV 12.4 % (11.6-14.6); RBC Distribution Width SD 43.8 fl (35.1-43.9); Red Blood Count 4.08 M/mm3 (4.2-5.4)
[2021-04-03 12:36] LABS: AST(SGOT) 15 U/L (15-37); Alanine Aminotransfer ALT/SGPT 22 U/L (13-56); Albumin, Serum 3.7 g/dL (3.2-5.0); Alkaline Phosphatase 77 U/L (45-117); Anion Gap 8 (5-15); BUN 12 mg/dL (7-18); Calcium,Total 8.9 mg/dL (8.5-10.1); Chloride 104 mmol/L (98-107); Creatinine, Serum 0.67 mg/dL (0.55-1.02); EST Glomerular Filtration Rate 94 mL/min (>60); Est Glom Filt Rate - Afr Amer 113 mL/min (>60); Globulin 3.7 g/dL (2.2-4.2); Glucose 72 mg/dL (74-106); Potassium 3.4 mmol/L (3.5-5.1); Protein, Total 7.4 g/dL (6.4-8.2); Sodium Level 141 mmol/L (136-145)
== END ==
PROVIDERS: PCP Internal Medicine; Referring Provider Internal Medicine Rheumatology; Visit Provider Internal Medicine Rheumatology
DX: M18.11 Unilateral primary osteoarthritis of first carpometacarpal joint, right hand (principal); M17.0 Bilateral primary osteoarthritis of knee; M47.897 Other spondylosis, lumbosacral region
CPT/HCPCS: 36415; 80053; 85025

== ENCOUNTER → 2021-09-22 | Outpatient (CLI) | payer MEDICARE, SELFPAY ==
[2021-09-22 12:23] LABS: Absolute Lymphocyte Count 2.06 X10^3/uL (0.83-4.51); Absolute Neutrophil Count 4.6 X10^3/uL (2.0-7.7); Basophil# 0.03 X10^3/uL; Basophil% 0.4 % (0-1); Eosinophil# 0.14 X10^3/uL; Eosinophils% 1.9 % (0-5); Hematocrit 39.4 % (37-47); Lymphocyte # 2.06 X10^3/ul (0.83-4.51); Lymphocyte % 28.1 % (19-41); Mean Corpuscular Hgb 31.7 pg (27.0-32.0); Mean Corpuscular Volume 96.1 fL (81-99); Mean Platelet Vol. 9.4 fl (6.2-12.0); Monocyte# 0.51 X10^3/uL; NRBC Flagged by Analyzer 0 % (0-5); Neutrophil # 4.57 X10^3/uL (2.7-7.7); Neutrophil % 62.5 % (47-70); Platelet Count 335 K/mm3 (150-450); RBC Distribution Width CV 12.4 % (11.6-14.6); RBC Distribution Width SD 44.1 fl (35.1-43.9); White Blood Count 7.3 K/mm3 (4.4-11.0)
[2021-09-22 12:39] LABS: ALB/GLOB Ratio 1.1 RATIO (0.9-2.4); AST(SGOT) 21 U/L (15-37); Alanine Aminotransfer ALT/SGPT 30 U/L (13-56); Albumin, Serum 3.9 g/dL (3.2-5.0); Alkaline Phosphatase 67 U/L (45-117); Anion Gap 2 (5-15); BUN 14 mg/dL (7-18); BUN/Creat Ratio 17.8 RATIO (10-20); Calcium,Total 9.2 mg/dL (8.5-10.1); Chloride 105 mmol/L (98-107); Creatinine, Serum 0.79 mg/dL (0.55-1.02); EST Glomerular Filtration Rate 77 mL/min (>60); Est Glom Filt Rate - Afr Amer 93 mL/min (>60); Globulin 3.7 g/dL (2.2-4.2); Glucose 67 mg/dL (74-106); Potassium 3.8 mmol/L (3.5-5.1); Protein, Total 7.6 g/dL (6.4-8.2); Sodium Level 139 mmol/L (136-145)
== END | disposition home or self-care (01) ==
LOC: LAB.FUTURE 09:39 → MTLAB 09:40
PROVIDERS: PCP Internal Medicine; Referring Provider Internal Medicine Rheumatology; Visit Provider Internal Medicine Rheumatology
DX: M18.0 Bilateral primary osteoarthritis of first carpometacarpal joints (principal); M17.0 Bilateral primary osteoarthritis of knee; M47.897 Other spondylosis, lumbosacral region; M76.821 Posterior tibial tendinitis, right leg; Q66.70 Congenital pes cavus, unspecified foot
CPT/HCPCS: 36415; 80053; 85025

== ENCOUNTER → 2021-12-19 | Outpatient (CLI) | payer MEDICARE, SELFPAY ==
[2021-12-19 10:16] LABS: Absolute Lymphocyte Count 1.46 X10^3/uL (0.83-4.51); Absolute Neutrophil Count 4.8 X10^3/uL (2.0-7.7); Basophil# 0.03 X10^3/uL; Basophil% 0.4 % (0-1); Eosinophils% 1.5 % (0-5); Hematocrit 40.6 % (37-47); Hemoglobin 13.5 g/dL (12.0-15.0); Lymphocyte # 1.46 X10^3/ul (0.83-4.51); Lymphocyte % 21.2 % (19-41); Mean Corp Hgb Conc 33.3 g/dL (32-36); Mean Corpuscular Hgb 31.5 pg (27.0-32.0); Mean Corpuscular Volume 94.6 fL (81-99); Mean Platelet Vol. 9.3 fl (6.2-12.0); Monocyte# 0.45 X10^3/uL; Monocyte% 6.5 % (0-10); NRBC Flagged by Analyzer 0 % (0-5); Neutrophil # 4.83 X10^3/uL (2.7-7.7); Neutrophil % 70.3 % (47-70); Platelet Count 307 K/mm3 (150-450); RBC Distribution Width CV 12.2 % (11.6-14.6); RBC Distribution Width SD 42.9 fl (35.1-43.9); Red Blood Count 4.29 M/mm3 (4.2-5.4); White Blood Count 6.9 K/mm3 (4.4-11.0)
[2021-12-19 10:33] LABS: ALB/GLOB Ratio 1.1 RATIO (0.9-2.4); AST(SGOT) 19 U/L (15-37); Alanine Aminotransfer ALT/SGPT 24 U/L (13-56); Alkaline Phosphatase 71 U/L (45-117); Anion Gap 6 (5-15); BUN 15 mg/dL (7-18); BUN/Creat Ratio 19.6 RATIO (10-20); Calcium,Total 9.8 mg/dL (8.5-10.1); Chloride 105 mmol/L (98-107); Creatinine, Serum 0.77 mg/dL (0.55-1.02); EST Glomerular Filtration Rate 80 mL/min (>60); Est Glom Filt Rate - Afr Amer 96 mL/min (>60); Globulin 3.8 g/dL (2.2-4.2); Glucose 97 mg/dL (74-106); Protein, Total 7.8 g/dL (6.4-8.2); Sodium Level 141 mmol/L (136-145)
== END | disposition home or self-care (01) ==
LOC: MTLAB 07:56
PROVIDERS: PCP Internal Medicine; Referring Provider Internal Medicine Rheumatology; Visit Provider Internal Medicine Rheumatology
DX: M06.4 Inflammatory polyarthropathy (principal); M18.0 Bilateral primary osteoarthritis of first carpometacarpal joints; M17.0 Bilateral primary osteoarthritis of knee; Q66.70 Congenital pes cavus, unspecified foot; M47.897 Other spondylosis, lumbosacral region; M76.821 Posterior tibial tendinitis, right leg; Z79.899 Other long term (current) drug therapy
CPT/HCPCS: 36415; 80053; 85025

== ENCOUNTER → 2022-03-21 | Outpatient (CLI) | payer MEDICARE, SELFPAY ==
[2022-03-21 15:39] LABS: ALB/GLOB Ratio 1.4 RATIO (0.9-2.4); AST(SGOT) 17 U/L (15-37); Alanine Aminotransfer ALT/SGPT 25 U/L (13-56); Albumin, Serum 4.1 g/dL (3.2-5.0); Alkaline Phosphatase 64 U/L (45-117); Anion Gap 7 (5-15); BUN 17 mg/dL (7-18); BUN/Creat Ratio 23.2 RATIO (10-20); Calcium,Total 9.4 mg/dL (8.5-10.1); Chloride 104 mmol/L (98-107); Creatinine, Serum 0.73 mg/dL (0.55-1.02); EST Glomerular Filtration Rate 84 mL/min (>60); Est Glom Filt Rate - Afr Amer 101 mL/min (>60); Globulin 2.9 g/dL (2.2-4.2); Glucose 95 mg/dL (74-106); Sodium Level 140 mmol/L (136-145)
[2022-03-21 17:46] LABS: Absolute Lymphocyte Count 1.55 X10^3/uL (0.83-4.51); Absolute Neutrophil Count 5.8 X10^3/uL (2.0-7.7); Basophil# 0.03 X10^3/uL; Basophil% 0.4 % (0-1); Eosinophil# 0.06 X10^3/uL; Eosinophils% 0.8 % (0-5); Hematocrit 37.9 % (37-47); Hemoglobin 12.7 g/dL (12.0-15.0); Lymphocyte # 1.55 X10^3/ul (0.83-4.51); Lymphocyte % 19.5 % (19-41); Mean Corp Hgb Conc 33.5 g/dL (32-36); Mean Corpuscular Hgb 31.7 pg (27.0-32.0); Mean Corpuscular Volume 94.5 fL (81-99); Mean Platelet Vol. 9.7 fl (6.2-12.0); Monocyte# 0.44 X10^3/uL; Monocyte% 5.5 % (0-10); NRBC Flagged by Analyzer 0 % (0-5); Neutrophil # 5.84 X10^3/uL (2.7-7.7); Neutrophil % 73.5 % (47-70); Platelet Count 305 K/mm3 (150-450); RBC Distribution Width CV 12.7 % (11.6-14.6); RBC Distribution Width SD 44.3 fl (35.1-43.9); Red Blood Count 4.01 M/mm3 (4.2-5.4); White Blood Count 7.9 K/mm3 (4.4-11.0)
== END | disposition home or self-care (01) ==
LOC: MTLAB 11:13
PROVIDERS: PCP Internal Medicine; Referring Provider Internal Medicine Rheumatology; Visit Provider Internal Medicine Rheumatology
DX: Z79.899 Other long term (current) drug therapy (principal); M06.4 Inflammatory polyarthropathy; M15.9 Polyosteoarthritis, unspecified
CPT/HCPCS: 36415; 80053; 85025

== ENCOUNTER → 2022-09-14 | Outpatient (CLI) | payer MEDICARE, SELFPAY ==
[2022-09-14 10:35] LABS: Basophil# 0.02 X10^3/uL; Basophil% 0.3 % (0-1); Eosinophil# 0.09 X10^3/uL; Eosinophils% 1.2 % (0-5); Hematocrit 39.1 % (37-47); Hemoglobin 12.9 g/dL (12.0-15.0); Lymphocyte % 23.6 % (19-41); Mean Corpuscular Hgb 31.4 pg (27.0-32.0); Mean Corpuscular Volume 95.1 fL (81-99); Mean Platelet Vol. 9.5 fl (6.2-12.0); Monocyte# 0.43 X10^3/uL; NRBC Flagged by Analyzer 0 % (0-5); Neutrophil # 4.95 X10^3/uL (2.7-7.7); Neutrophil % 68.6 % (47-70); Platelet Count 310 K/mm3 (150-450); RBC Distribution Width CV 12.2 % (11.6-14.6); RBC Distribution Width SD 42.5 fl (35.1-43.9); Red Blood Count 4.11 M/mm3 (4.2-5.4); White Blood Count 7.2 K/mm3 (4.4-11.0)
[2022-09-14 10:48] LABS: AST(SGOT) 24 U/L (15-37); Alanine Aminotransfer ALT/SGPT 29 U/L (13-56); Albumin, Serum 3.7 g/dL (3.2-5.0); Alkaline Phosphatase 67 U/L (45-117); Anion Gap 5 (5-15); BUN 15 mg/dL (7-18); BUN/Creat Ratio 21.3 RATIO (10-20); Chloride 108 mmol/L (98-107); EST Glomerular Filtration Rate 87 mL/min (>60); Est Glom Filt Rate - Afr Amer 106 mL/min (>60); Globulin 3.6 g/dL (2.2-4.2); Glucose 76 mg/dL (74-106); Potassium 3.6 mmol/L (3.5-5.1); Protein, Total 7.3 g/dL (6.4-8.2); Sodium Level 145 mmol/L (136-145)
== END | disposition home or self-care (01) ==
LOC: MTLAB 08:40
PROVIDERS: PCP Internal Medicine; Referring Provider Internal Medicine Rheumatology; Visit Provider Internal Medicine Rheumatology
DX: M06.4 Inflammatory polyarthropathy (principal); Z79.899 Other long term (current) drug therapy; M18.0 Bilateral primary osteoarthritis of first carpometacarpal joints; M17.0 Bilateral primary osteoarthritis of knee; Q66.70 Congenital pes cavus, unspecified foot; M47.897 Other spondylosis, lumbosacral region; M76.821 Posterior tibial tendinitis, right leg
CPT/HCPCS: 36415; 80053; 85025

== ENCOUNTER 2024-06-16 07:53 | Day surgery (SDC) | payer MEDICARE, SELFPAY ==
--- NOTE | 2024-06-11 16:07 | PAT.ANESEVAL ---
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 When Was Last Pacemaker Check QUESTION #4 FULL TEXT: You/Your Family Experience fever (hyperthermia) with Anesthesia Last Oral Intake Last Oral intake: Last Oral Intake NPO since Meds taken in AM with sips of water? Meds patient instructed to take am of surgery PONV PONV - hearing aide technician: PONV - hearing aide technician Female Yes 06/10/24 14:52 HX of Motion Sickness No 06/10/24 14:52 HX of N/V After Surgery No 06/10/24 14:52 Non-Smoker Yes 06/10/24 14:52 Duration of Surgery greater No 06/10/24 14:52 than 60 minutes Number of Risk Factors 2 06/10/24 14:52 PONV Score Moderate Risk 06/10/24 14:52 Height & Weight Height & Weight: Anesthesia: Height & Weight Height 5 ft 7 in 04/28/24 08:32 Respiratory Assessment Respiratory Assessment - hearing aide technician: Respiratory Tract Infection Hx - hearing aide technician Hx Respiratory Tract Infection No 06/10/24 14:52 STOP Sleep Apnea STOP Sleep Apnea - hearing aide technician: STOP Sleep Apnea - hearing aide technician Hx Hypertension No 06/10/24 14:52 Hx Sleep Apnea No 06/10/24 14:52 CPAP BIPAP Do you snore loudly (louder No 06/10/24 14:52 than talking or can be heard Do you often feel tired/ No 06/10/24 14:52 fatigued/ sleepy during daytime? Has anyone observed you stop No 06/10/24 14:52 breathing during sleep? STOP Results Negative 06/10/24 14:52 QUESTION #5 FULL TEXT : Do you snore loudly (louder than talking or can be heard through closed doors)? 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 Specify any problems Hx of Preganancy in last 3 No 06/10/24 14:52 Months Nurse Filling Out Transfusion VCHRISTIN 06/10/24 14:52 & Questions: Date: 06/10/24 06/10/24 14:52 Time: 14:54 06/10/24 14:52 Patient unable to answer at this time (ie. confused, unrespo /Reproduction History /Reproductive History - hearing aide technician: /Reproductive Hx- hearing aide technician Hx Now Gestational Age (in weeks): EDC: Hx Hx Para Hx Section SAB PFSH Medical History (Updated 06/10/24 @ 14:52 by Radha Garcia) Wears hearing aid Wears contact lenses Wears glasses Alcohol use Arthritis Leg cramps Cardiology follow-up encounter History of Holter monitoring Personal history of colonic polyps Family history of colon cancer Home Medications ?Medication ?Instructions ?Recorded ?Last Taken ?Type meloxicam 15 mg tablet (Mobic) 15 mg PO PRN PRN Pain Or Fever 06/25/17 Unknown History famotidine 20 mg tablet 10 mg PO BID 05/21/19 Unknown History calcium carbonate (Paige-[place] 300 mg PO TID PRN dyspepsia 06/10/24 Unknown History Heartburn Chew) glucosamine 375 vm-zdrcbuepa-jqc 1 tab PO DAILY 06/10/24 Unknown History no1 500 mg-C 15 mg-faiza 0.5 mg tablet (Uwswxpjmqlm-Bxrazmqngek-OWS Complex) Allergy/AdvReac Type Severity Reaction Status Date / Time Penicillins AdvReac Nausea/Vom/ Verified 06/10/24 14:42 Diarrhea Family History (Updated 04/28/24 @ 08:28 by Idania Escobar) Brother Colon cancer Surgical History (Updated 06/10/24 @ 14:52 by Radha Garcia) History of arthroscopic knee surgery History of appendectomy Hx of total knee replacement Hx of colonoscopy Social History (Updated 04/28/24 @ 08:29 by Idania Escobar) household members: none current occupational status: retired Smoking Status: Never smoker substance use type: does not use Audit: Pertinent Findings Pertinent Findings EKG Perinent findings: 03/30/2024. Sinus rhythm with PACs in a pattern of bigeminy. Echo (EF%) pertinent findings: April 06, 2024. Ejection fraction is 59%. Right ventricular systolic pressure is 38 mmHg consistent with mild pulmonary hypertension. There is no aortic valve stenosis. Additional pertinent findings: Zio patch from 04/06/2024 to April 20, 2024. Predominantly sinus rhythm. 9 supraventricular tachycardia runs occurred. Ventricular bigeminy and trigeminy were present. Recommendation Anesthesia Recommendation Anesthesia recommendation: OPTIMIZED for anesthesia
[2024-06-16] VITALS (8 sets, daily range): BP systolic 122–147; BP diastolic 72–111; PULSE 64–82; RESP 14–16; TEMP 30.8–36.8; O2SAT 97–100; BMI 23.1
--- NOTE | 2024-06-16 08:38 | PCM.PRE.AN2 ---
ASA Classification* ASA Classification ASA Classification: 2 Assessment & Plan Anesthesia* Anesthesia Assessment Anesthesia Assessment: Discussed sedation and/or anesthesia options, risks, benefits, and alternatives with patient/parents/legal guardian/POA. Questions invited. The patient/parents/legal guardian/POA seems to understand and agrees to proceed with anesthesia plan. Reviewed the physical assessment, medical history, allergy history and patient home medications list prior to surgery/procedure/anesthetic and documented any changes. Performed airway and anesthesia risk assessments. Anesthesia Type Anesthesia Type: MAC History Source History Obtained from:: Patient and Chart Anesthesia Focused Assessment* Temperature: 98.3 F Pulse Rate: 76 Blood Pressure: 134/85 Respiratory Rate: 16 Pulse Ox: 100 Oxygen Delivery Method: Room Air Airway Assessment Mouth opens: >3 cm Mallampati Score: II Teeth Condition: Intact Neck Range of motion (ROM): Full ROM Focused Labs Anesthesia Preop lab: CBC WBC 7.2 K/mm3 (4.4-11.0) 09/14/22 08:55 09/14/22 RBC 4.11 M/mm3 (4.2-5.4) L 09/14/22 08:55 09/14/22 Hgb 12.9 g/dL (12.0-15.0) 09/14/22 08:55 09/14/22 Hct 39.1 % (37-47) 09/14/22 08:55 09/14/22 Plt Count 310 K/mm3 (150-450) 09/14/22 08:55 09/14/22 CHEMISTRY Potassium 3.6 mmol/L (3.5-5.1) 09/14/22 08:55 09/14/22 Sodium 145 mmol/L (136-145) 09/14/22 08:55 09/14/22 BUN 15 mg/dL (7-18) 09/14/22 08:55 09/14/22 Creatinine 0.70 mg/dL (0.55-1.02) 09/14/22 08:55 09/14/22 Glucose 76 mg/dL (74-106) 09/14/22 08:55 09/14/22 COAG Pre-Assessment Diagnosis/Proposed Procedure Planned Operative Procedure(s): COLONOSCOPY-OA Anesthesia History 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 When Was Last Pacemaker Check QUESTION #4 FULL TEXT: You/Your Family Experience fever (hyperthermia) with Anesthesia Last Oral Intake Last Oral intake: Last Oral Intake NPO since 05:00 06/16/24 08:20 Meds taken in AM with sips of No 06/16/24 08:20 water? Meds patient instructed to take am of surgery Any additional information?: Yes NPO since: 05:00 (Patient finished prep at 5 AM.) Meds taken in AM with sips of water?: No PONV PONV - transmissions systems operator: PONV - transmissions systems operator Female Yes 06/10/24 14:52 HX of Motion Sickness No 06/10/24 14:52 HX of N/V After Surgery No 06/10/24 14:52 Non-Smoker Yes 06/10/24 14:52 Duration of Surgery greater No 06/10/24 14:52 than 60 minutes Number of Risk Factors 2 06/10/24 14:52 PONV Score Moderate Risk 06/10/24 14:52 Height & Weight Height & Weight: Anesthesia: Height & Weight Height 5 ft 7 in 06/16/24 08:20 Weight: 66.9 kg 06/16/24 08:20 Body Mass Index (BMI) 23.1 06/16/24 08:20 Respiratory Assessment Respiratory Assessment - transmissions systems operator: Respiratory Tract Infection Hx - transmissions systems operator Hx Respiratory Tract Infection No 06/10/24 14:52 STOP Sleep Apnea STOP Sleep Apnea - transmissions systems operator: STOP Sleep Apnea - transmissions systems operator Hx Hypertension No 06/10/24 14:52 Hx Sleep Apnea No 06/10/24 14:52 CPAP BIPAP Do you snore loudly (louder No 06/10/24 14:52 than talking or can be heard Do you often feel tired/ No 06/10/24 14:52 fatigued/ sleepy during daytime? Has anyone observed you stop No 06/10/24 14:52 breathing during sleep? STOP Results Negative 06/10/24 14:52 QUESTION #5 FULL TEXT : Do you snore loudly (louder than talking or can be heard through closed doors)? Tobacco Use History Tobacco Use History - transmissions systems operator: Tobacco Use History - transmissions systems operator Tobacco Use Smoking Status Never smoker 06/10/24 14:52 Hx Tobacco Use No 06/10/24 14:52 Years Smoking Packs Smoked per Day Smoking Cessation Date was within the last 15 years Hx Smoking Cessation Date Hx Smoking Cessation Counseling Hematologic Medial History Hematologic Hx - transmissions systems operator: Hematologic Medical Hx - enroller Hx of Blood Transfusion No 06/10/24 14:52 Hx of Transfusion in last 3 No 06/10/24 14:52 Months Date of Last Transfusion (if within last 3 months) Ever experience any problems No 06/10/24 14:52 with transfusion(s)? Specify any problems Hx of Preganancy in last 3 No 06/10/24 14:52 Months Nurse Filling Out Transfusion VCHRISTIN 06/10/24 14:52 & Questions: Date: 06/10/24 06/10/24 14:52 Time: 14:54 06/10/24 14:52 Patient unable to answer at this time (ie. confused, unrespo /Reproduction History /Reproductive History - transmissions systems operator: /Reproductive Hx- transmissions systems operator Hx Now Gestational Age (in weeks): EDC: Hx Hx Para Hx Section SAB PFSH Medical History Wears hearing aid Wears contact lenses Wears glasses Alcohol use Arthritis Leg cramps Cardiology follow-up encounter History of Holter monitoring Personal history of colonic polyps Family history of colon cancer Home Medications ?Medication ?Instructions ?Recorded ?Last Taken ?Type meloxicam 15 mg tablet (Mobic) 15 mg PO PRN PRN Pain Or Fever 06/25/17 Unknown History famotidine 20 mg tablet 10 mg PO BID 05/21/19 Unknown History calcium carbonate (Paige[place] 300 mg PO TID PRN dyspepsia 06/10/24 Unknown History Heartburn Chew) glucosamine 375 st-hapgrqmno-kig 1 tab PO DAILY 06/10/24 Unknown History no1 500 mg-C 15 mg-faiza 0.5 mg tablet (Gfpwrfvzbil-Rfubsyhwiof-MOA Complex) Allergy/AdvReac Type Severity Reaction Status Date / Time Penicillins AdvReac Nausea/Vom/ Verified 06/16/24 08:13 Diarrhea Family History Brother Colon cancer Surgical History History of arthroscopic knee surgery History of appendectomy Hx of total knee replacement Hx of colonoscopy Social History household members: none current occupational status: retired Smoking Status: Never smoker substance use type: does not use Review of Systems (Anesthesia) ROS Narrative System reviewed and no additional complaints, except as documented.
--- NOTE | 2024-06-16 09:09 | H&P.OPEN ---
HPI - General HPI Narrative ZOË GODOY, is a 69 F who presents for surveillance colonoscopy. Her last colonoscopy was 5 years ago and was normal. Her colonoscopy before that revealed polyps. She denies any abdominal pain or blood in the stool. She does a family history of colon cancer in her brother. [facility] Medical History Wears hearing aid Wears contact lenses Wears glasses Alcohol use Arthritis Leg cramps Cardiology follow-up encounter History of Holter monitoring Personal history of colonic polyps Family history of colon cancer Home Medications ?Medication ?Instructions ?Recorded ?Last Taken ?Type meloxicam 15 mg tablet (Mobic) 15 mg PO PRN PRN Pain Or Fever 06/25/17 Unknown History famotidine 20 mg tablet 10 mg PO BID 05/21/19 Unknown History calcium carbonate (Paige-[place] 300 mg PO TID PRN dyspepsia 06/10/24 Unknown History Heartburn Chew) glucosamine 375 hk-jnzdrciwt-[id number] 1 tab PO DAILY 06/10/24 Unknown History no1 500 mg-C 15 mg-faiza 0.5 mg tablet (Meaebrwzssr-Fykpsrdbaoj-YGZ Complex) Allergy/AdvReac Type Severity Reaction Status Date / Time Penicillins AdvReac Nausea/Vom/ Verified 06/16/24 08:13 Diarrhea Family History Brother Colon cancer Surgical History History of arthroscopic knee surgery History of appendectomy Hx of total knee replacement Hx of colonoscopy Social History household members: none current occupational status: retired Smoking Status: Never smoker substance use type: does not use Past Medical/Surgical History Planned Operation Planned Operative Procedure(s): COLONOSCOPY-OA S.O.S: No Previous Hospitalizations/Surgeries HX Hospitalizations: No HX of Surgeries: APPENDECTOMY RIGHT KNEE SCOPE COLONOSCOPY R TKR 07/08/2017 Any Problems With Anesthesia: Yes (N&V W/ TKR) You/Your Family Experience Fever (Hyperthermia) With Anes: No Cholinesterase deficiency: No Cardiovascular Hx Chest Pain within Last 2 months: No Hx of Irregular Heartbeat and/or Afib: No Hx Heart Attack: No Hx Congestive Heart Failure: No Hx Rheumatic Fever: No Hx Hypertension: No Hx Internal Defibrillator: No Hx Pacemaker: No Hx Cardiac Catheterization: No Hx Cardiac Surgery/Stents/Etc.: No Hx Stress Test: No Hx Pain in Legs when Walking/Leg Cramps: No Respiratory Chronic Cough: No HX of Shortness of Breath: No Hoarseness: No Hx Chronic Obstructive Pulmonary Disease (COPD): No Hx Asthma: No Hx Emphysema: No Hx Sleep Apnea: No Hx Respiratory Tract Infection/Cold (presently): No Do You Snore Loudly (louder than talking or can be heard): No Do You Often Feel Tired/ Fatigued/ Sleepy Dring Daytime?: No Has Anyone Observed You Stop Breathing During Sleep?: No Result (for STOP score): Negative Hx Smoking: No Smoking Status: Never smoker Gastrointestinal Controlled With Meds: Yes (PEPCID) Hx Gastrointestinal Disorders: No Hx Gastrointestinal Bleed: No Hx Ulcer: No Hx Hiatal Hernia: No Difficulty Chewing/Swallowing: No Special diet followed at home: No Hx Unplanned Weight Loss of 20#: No HX Unplanned Weight Gain of 20#: No Neurological Hx Seizures: No HX Syncope/Blackout Spells/Unconsciousness: No Hx Transient Ischemic Attacks (TIA): No Hx Multiple Sclerosis: No Hx Parkinson's Disease: No Hx Head/Neck Injury: No Hx Headaches: No Hx Back Injury/Pain: Yes (OCC LOW BACK PAIN) Recent Onset of Speech Difficulty: No Restless Legs: No Does patient have nerve stimulator: No Blood Disorder Hx Leukemia: No Bleeding Tendencies: No Hx Deep Vein Thrombosis: No Hx High Cholesterol: No Blood Transmitted Disease: No Hx Hepatitis: No Hx Cirrhosis: No Hx Anemia: No Hx Blood Disorders: No Reproduction Is Patient Lactating: No Hx Hysterectomy: No Hx Tubal Ligation: No Are You Post Menopause: Yes Genitourinary Hx Renal Disease: No Musculoskeletal Hx Arthritis: Yes Hx Rheumatoid Arthritis: No Hx Gout: No Recent Onset of an Orthopedic Problem: No Endocrine Hx Diabetes: No Thyroid Disease: No Hx Steroid Therapy: No Psycho/Social Hx Substance Use: No Hx Alcohol Use: Yes (SOCIAL) Hx Anxiety: No Hx Depression: No Mental Illness: No Hx Dementia: No Miscellaneous Hx Cancer: No Recent Exposure to Contagious Disease: No Hx of C-Diff: No Any Loose Teeth: No Allergies Penicillins Adverse Reaction (Verified 06/16/24 08:13) Nausea/Vom/Diarrhea Discharge Is Pt Admitted From a Senior Care, or a Residential: No After D/C, Where Do you Plan to Go: Return Home From the [facility] History Number of Risk Factors: 2 Vital Signs Vital Signs Vital Signs: 06/16/24 08:20 06/16/24 08:20 06/16/24 08:43 Temperature 98.3 F 98.3 F Temperature Source Temporal Pulse Rate 76 76 Respiratory Rate 16 16 Respiratory Pattern Normal Blood Pressure 134/85 H 134/85 H Blood Pressure Mean 101 Blood Pressure Source Monitor Blood Pressure Position Semi-Fowlers Blood Pressure Location Left Arm Pulse Ox 100 100 Oxygen Delivery Method Room Air Room Air Weight Weight: 147 lb 7.828 oz Body Mass Index (BMI) 23.1 Physical Exam Const alert and oriented x3 HEENT normocephalic Eyes PERRL Resp normal respiratory effort and normal air movement Cardio regular rate and regular rhythm GI soft to palpation, non-tender and non-distended Extremity normal to inspection Assessment & Plan Assessment/Plan (1) Encounter for screening for malignant neoplasm of colon: PLAN: I explained endoscopy in detail to the patient. I explained the risks including but not limited to stroke or heart attack with anesthesia, perforation of the GI tract, bleeding, infection. I explained that any of these could necessitate further emergency surgery. The patient understands and all questions were answered sufficiently. The patient wishes to proceed with procedure. Melquiades Thomas MD Pager: [facility] [address] [place] [address], [address] [place] [address] Office: Surgery Risks - Colonoscopy Risks Include but are not Limited To: Risks include but are not limited to: Bleeding, perforation requiring further surgery, inability to complete colonoscopy requiring barium enema.
--- NOTE | 2024-06-16 09:34 | PCM.POST.ANE ---
Anesthesia: Postop Eval I Current Vital Signs Temperature: 97.4 F Pulse Rate: 72 Blood Pressure: 147/101 Respiratory Rate: 14 Pulse Ox: 97 Oxygen Delivery Method: Room Air Assessment Airway patent: Yes Spontaneous unlabored respirations: Yes Mental status: Awake nausea: Yes Vomiting: No Anesthesia Complication: No Fluid Hydration Crystalloid volume administer (ml): 10 Total IV fluid infused: 10 Progress Note Anesthesia document: Postop Eval 1 completed: Yes
--- NOTE | 2024-06-16 09:39 | OP.CCLET_ITS ---
06/16/2024 Jamie Franks [address] [place] [address] Re : Colonoscopy procedure for Shannan Thomas Dear Dr. Franks This procedure was performed on Sunday, June 16, 2024. My impressions and recommendations are as follows: Impressions : - The entire examined colon is normal on direct and retroflexion views. - No specimens collected. Recommendations : - Discharge patient to home. - Resume previous diet. - Continue present medications. - Repeat colonoscopy is not recommended due to current age (66 years or older) for screening purposes. My findings are described in the full procedure note, which is enclosed. If I can be of further assistance, please feel free to contact me at Doctor phone number(s): , Work: . Sincerely, Melquiades Thomas MD 06/16/2024 9:38:30 AM This report has been signed electronically.
--- NOTE | 2024-06-16 09:39 | OP.COLON_ITS ---
Patient Name: Shannan Thomas Procedure Date: 06/16/2024 9:07 AM Date of : 1955 Age: 69 Procedure: Colonoscopy Indications: Screening for colorectal malignant neoplasm Providers: Melquiades Thomas MD Medicines: Propofol per Anesthesia Patient Profile: This is a 69 year old female. Refer to note in patient chart for documentation of history and physical. Last Colonoscopy: several years ago. Complications: No immediate complications. Procedure: Pre-Anesthesia Assessment: - Prior to the procedure, a History and Physical was performed, and patient medications and allergies were reviewed. The patient's tolerance of previous anesthesia was also reviewed. The risks and benefits of the procedure and the sedation options and risks were discussed with the patient. All questions were answered, and informed consent was obtained. Prior Anticoagulants: The patient has taken no anticoagulant or antiplatelet agents. ASA Grade Assessment: II - A patient with mild systemic disease. After reviewing the risks and benefits, the patient was deemed in satisfactory condition to undergo the procedure. After I obtained informed consent, the scope was passed under direct vision. Throughout the procedure, the patient's blood pressure, pulse, and oxygen saturations were monitored continuously. The Colonoscope was introduced through the anus and advanced to the cecum, identified by appendiceal orifice and ileocecal valve. The colonoscopy was performed without difficulty. The patient tolerated the procedure well. The quality of the bowel preparation was good. The ileocecal valve, appendiceal orifice, and rectum were photographed. Scope In: 9:21:14 AM Scope Withdrawal Time 0 hours 5 minutes 4 seconds Scope Out: 9:35:12 AM Total Procedure Duration Time 0 hours 13 minutes 58 seconds Findings: The entire examined colon appeared normal on direct and retroflexion views. Impression: - The entire examined colon is normal on direct and retroflexion views. - No specimens collected. Recommendation: - Discharge patient to home. - Resume previous diet. - Continue present medications. - Repeat colonoscopy is not recommended due to current age (66 years or older) for screening purposes. Procedure Code(s): --- Professional --- 60258, Colonoscopy, flexible; diagnostic, including collection of specimen(s) by brushing or washing, when performed (separate procedure) Diagnosis Code(s): --- Professional --- Z12.11, Encounter for screening for malignant neoplasm of colon CPT copyright 2021 [employer]. All rights reserved. The codes documented in this report are preliminary and upon physician coder review may be revised to meet current compliance requirements. Melquiades Thomas MD 06/16/2024 9:38:30 AM This report has been signed electronically. Number of Addenda: 0 Note Initiated On: 06/16/2024 9:07 AM
--- NOTE | 2024-06-16 11:32 | POSTOPAN2_ITS ---
Anesthesia Postop Eval I Sum Postop Eval Completion status Anesthesia document: Postop Eval 1 completed: Yes Anesthesia Postop Eval I Summary Anesthesia Postop Eval I Summary: Anesthesia Postop Eval I: Assessment Summary Airway patent Yes 06/16/24 09:39 RECEIVING OPERATOR.HBARR Spontaneous unlabored Yes 06/16/24 09:39 RECEIVING OPERATOR.HBARR respirations Mental status Awake 06/16/24 09:39 RECEIVING OPERATOR.HBARR nausea Yes 06/16/24 09:39 RECEIVING OPERATOR.HBARR Vomiting No 06/16/24 09:39 RECEIVING OPERATOR.HBARR Anesthesia Postop Eval I: Fluid Summary Crystalloid volume administer 10 06/16/24 09:39 RECEIVING OPERATOR.HBARR (ml) Colloids volume administered ( ml) Blood Product volume administered (ml) Total IV fluid infused 10 06/16/24 09:39 RECEIVING OPERATOR.HBARR Anesthesia Postop Eval I: Summary Notes Anesthesia Complication No 06/16/24 09:39 RECEIVING OPERATOR.HBARR Anesthesia Complication Comment: Post-operative progress note Anesthesia: Postop Eval II Evaluation Mental status: Awake Pain Level: 0 nausea: No Vomiting: No
--- NOTE | 2024-06-16 11:32 | PCM.POSTANE2 ---
Anesthesia Postop Eval I Sum Postop Eval Completion status Anesthesia document: Postop Eval 1 completed: Yes Anesthesia Postop Eval I Summary Anesthesia Postop Eval I Summary: Anesthesia Postop Eval I: Assessment Summary Airway patent Yes 06/16/24 09:39 BARKING MACHINE FEEDER.[email or web address] Spontaneous unlabored Yes 06/16/24 09:39 BARKING MACHINE FEEDER.HBARR respirations Mental status Awake 06/16/24 09:39 BARKING MACHINE FEEDER.HBARR nausea Yes 06/16/24 09:39 BARKING MACHINE FEEDER.HBARR Vomiting No 06/16/24 09:39 BARKING MACHINE FEEDER.HBARR Anesthesia Postop Eval I: Fluid Summary Crystalloid volume administer 10 06/16/24 09:39 BARKING MACHINE FEEDER.HBARR (ml) Colloids volume administered ( ml) Blood Product volume administered (ml) Total IV fluid infused 10 06/16/24 09:39 BARKING MACHINE FEEDER.HBARR Anesthesia Postop Eval I: Summary Notes Anesthesia Complication No 06/16/24 09:39 BARKING MACHINE FEEDER.HBARR Anesthesia Complication Comment: Post-operative progress note Anesthesia: Postop Eval II Evaluation Mental status: Awake Pain Level: 0 nausea: No Vomiting: No
== END 2024-06-16 10:16 | disposition home or self-care (01) ==
LOC: EN 07:55 → AC 07:56
PROVIDERS: PCP Internal Medicine; Referring Provider Internal Medicine; Visit Provider Surgery
PROC: 0DJD8ZZ Inspection of Lower Intestinal Tract, Via Natural or Artificial Opening Endoscopic (ICD-10-PCS; CPT 45378; principal; 2024-06-16 08:55)
DX: Z12.11 Encounter for screening for malignant neoplasm of colon (principal); Z80.0 Family history of malignant neoplasm of digestive organs
CPT/HCPCS: G0121; A4216; J2405